=== PATIENT | female | born 1980 | race Caucasian/White ===

== ENCOUNTER → 2016-03-24 | Outpatient (CLI) | payer OTHER ==
[~2016-03-24] MED LIST: OXYC1SOL5 PO; OXYC1TAB63 PO; PREN29TA PO; PRENCAP10 PO
== END ==
LOC: HPND 08:53
PROVIDERS: ATTEND Obstetrics & Gynecology
DX: O09.522 Supervision of elderly multigravida, second trimester (principal); Z3A.23 23 weeks gestation of pregnancy
CPT/HCPCS: 76811; 76817

== ENCOUNTER → 2016-04-07 | Outpatient (CLI) | payer OTHER | LOC: HPND 12:43 | PROVIDERS: ATTEND Obstetrics & Gynecology | DX: O09.522 Supervision of elderly multigravida, second trimester (principal); O26.872 Cervical shortening, second trimester; O10.912 Unspecified pre-existing hypertension complicating pregnancy, second trimester | CPT/HCPCS: 76817; 76825; 76827; 93325 ==

== ENCOUNTER 2016-04-27 13:34 | Emergency (ER) | payer OTHER ==
[~2016-04-27 13:34] MED LIST changes: -OXYC1TAB63 PO; -PREN29TA PO
--- NOTE | 2016-04-27 14:05 | PD ---
HPI Chief Complaint Patient sent to [facility] per Dr. Jackson, R/o PTL Date Seen: Apr 27, 2016 Travel History International Travel<30 Days: No Contact w/Intl Traveler<30Days: No Known Affected Area: No History of Present Illness HPI at 28w 5d presents per Dr. Jackson. Patient seen in US today, noted to have a shorten cervix, 1.6cm with funneling on US today per TV scan, per verbal report from tech. US- cephalic, posterior placenta, ASHLYN 21.8cm. Patient with shorten cervix noted earlier this , then improved cervical length. Currently taking Progesterone. Patient without complaints. Denies ctxs/ abdominal pain/VB. Reports good FM. Denies urinary/bowel problems. Para: 3 : 10 History Past Medical History Medical History: Denies Significant Hx Past Surgical History Surgical History: No Previous Surgery Family History Family History: Negative Social History Alcohol Use: No Tobacco Use: No Substance Abuse: No Allergies-Medications (Allergen,Severity, Reaction): Coded Allergies: No Known Allergies (Verified , 07/20/14) Home Meds Active Scripts Oxycodone W/ Acetaminophen (Oxycodone/Acetaminophen 5-325 mg/5Ml)1 Tab Tab1 Tab PO Q4H PRN (PAIN SCALE 1 TO 4) #30 TAB Prov:Rachele Viera MD 07/21/14 Reported Medications Vit W/ Ferrous Fumara ( Multi +Dha)+ Cap1 Cap PO DAILY 12/19/13 Physical Exam Narrative GENERAL: Well-nourished, well-developed patient. SKIN: Warm and dry. HEAD: Normocephalic and atraumatic. EYES: No scleral icterus. No injection or drainage. ENT: No nasal drainage noted. Mucous membranes pink. Airway patent. NECK: Supple, trachea midline. No JVD. CARDIOVASCULAR: Regular rate and rhythm without murmurs, gallops, or rubs. RESPIRATORY: Breath sounds equal bilaterally. No accessory muscle use. BREASTS: Bilateral exam showed no masses , no retractions, no nipple discharge. ABDOMEN/GI: Abdomen soft, non-tender, bowel sounds present, no rebound, no guarding Gravid to [-] weeks size Fundal Height: [-] GENITOURINARY: External Genitalia: intact and normal in appearance BUS glands: [-] Cervix: [no cervical change noted after 2 hours] Dilatation: [0] Effacement: [50] Station: [3] Presentation: [-] Membranes: [intact or ruptured] Uterine Contractions: [none] FHT's: Category: [1] Baseline: [-] Reactive: [-] Variability: [moderate] Decels: [none] EXTREMITIES: No cyanosis or edema. BACK: Nontender without obvious deformity. No CVA tenderness. NEUROLOGICAL: Awake and alert. Motor and sensory grossly within normal limits. Five out of 5 muscle strength in all muscle groups. Normal speech. Data Data Vital Signs Reviewed: Yes (AFVSS BP 112/61) Labs UA- negative MDM Interpretation(s) at 28w 5d with shorten cervix, AMA, r/o PTL. Plan Per Dr. Jackson, patient to receive betamethosone course beginning today. Will d/ c home on bedrest and pelvic rest. Return to L&D for 2nd dose tomorrow. R/B/A reviewed with patient. All questions answered. Close f/u in office. labor precautions. Diagnosis Diagnosis: Primary Impression: 28 weeks gestation of Additional Impressions: Cervical shortening affecting in third trimester AMA (advanced maternal age) multigravida 35+ Disposition: 01 DISCHARGE HOME Condition: Good Britta Marte MD Apr 27, 2016 14:05
[2016-04-27] MEDS ORDERED: BETAMETHASONE SOD PHOS/ACETATE SUSP 30 MG/5 ML VIAL IM ONE (14:45)
[2016-04-27 14:48] LABS: BACTERIA, URINE RARE /hpf; BLOOD, URINE NEG (NEG); COMMENT (UR) CULT NOT INDICATED; CULTURE IF INDICATED CULT NOT INDICATED; GLUCOSE,URINE NEG (NEG); KETONE, URINE NEG (NEG); MUCUS URINE FEW /lpf (OCC); NITRITE,URINE NEG (NEG); SQUAMOUS EPITHELIAL CELL URINE 1 /hpf (0-5); URINE COLOR YELLOW (YELLW/STRAW)
[2016-08-18] MEDS ORDERED: PREN29TA PO (12:58)
== END 2016-04-27 16:45 | disposition home or self-care (01) ==
LOC: HOBED 13:34
DX: O26.873 Cervical shortening, third trimester (principal); O09.523 Supervision of elderly multigravida, third trimester; Z3A.28 28 weeks gestation of pregnancy
CPT/HCPCS: 81001; 96372; 99284; J0702

== ENCOUNTER → 2016-04-27 | Outpatient (CLI) | payer OTHER | LOC: HPND 12:26 | PROVIDERS: ATTEND Obstetrics & Gynecology | DX: O09.523 Supervision of elderly multigravida, third trimester (principal); O10.913 Unspecified pre-existing hypertension complicating pregnancy, third trimester; Z3A.28 28 weeks gestation of pregnancy | CPT/HCPCS: 76816; 76817 ==

== ENCOUNTER → 2016-04-28 | Outpatient (CLI) | payer OTHER ==
[~2016-04-28] MED LIST changes: +BETAMETHASONE SOD PHOS/ACETATE SUSP 30 MG/5 ML VIAL IM ONE; +OXYC1TAB63 PO; +PREN29TA PO
== END ==
LOC: HOBG 14:59
PROVIDERS: ATTEND Obstetrics & Gynecology
DX: O09.523 Supervision of elderly multigravida, third trimester (principal); O10.913 Unspecified pre-existing hypertension complicating pregnancy, third trimester
CPT/HCPCS: 96372; J0702

== ENCOUNTER 2016-05-18 20:12 | Emergency (ER) | payer OTHER ==
[~2016-05-18 20:12] MED LIST changes: -BETAMETHASONE SOD PHOS/ACETATE SUSP 30 MG/5 ML VIAL IM ONE; -OXYC1TAB63 PO; -PREN29TA PO
[2016-05-18 21:49] LABS: BACTERIA, URINE RARE /hpf; BLOOD, URINE NEG (NEG); COMMENT (UR) CULT NOT INDICATED; CULTURE IF INDICATED CULT NOT INDICATED; GLUCOSE,URINE TRACE mg/dL (NEG); KETONE, URINE TRACE mg/dL (NEG); MUCUS URINE FEW /lpf (OCC); NITRITE,URINE NEG (NEG); SQUAMOUS EPITHELIAL CELL URINE 1 /hpf (0-5); URINE COLOR YELLOW (YELLW/STRAW)
--- NOTE | 2016-05-18 21:57 | PD ---
HPI Chief Complaint Left lower abdominal pain today Date Seen: May 18, 2016 Travel History International Travel<30 Days: No Contact w/Intl Traveler<30Days: No Known Affected Area: No History of Present Illness HPI This patient is a 36-year-old white female G3 N P3 at [address] solorzano for care who presents complaining of left lower quadrant abdominal pain near the groin today. She had no pain prior to today. She denies bleeding or rupture the membranes baby is active heart rate tracing is reactive and she is not yunior Para: 3 : 10 History Obstetric History Obstetric History 3 vaginal deliveries, multiple losses early Social History Alcohol Use: No Tobacco Use: No Substance Abuse: No Allergies-Medications (Allergen,Severity, Reaction): Coded Allergies: No Known Allergies (Verified , 07/20/14) Home Meds Active Scripts Oxycodone W/ Acetaminophen (Oxycodone/Acetaminophen 5-325 mg/5Ml)1 Tab Tab1 Tab PO Q4H PRN (PAIN SCALE 1 TO 4) #30 TAB Prov:Rachele Viera MD 07/21/14 Reported Medications Vit W/ Ferrous Fumara ( Multi +Dha)+ Cap1 Cap PO DAILY 12/19/13 Review of Systems General / Constitutional: No: Fever, Weight Gain, Chills, Other Eyes: No: Diploplia, Blurred Vision, Visual changes, Pain, Photophobia HENT: No: Headaches, Vertigo, Lightheadedness Cardiovascular: No: Irregular Rhythm, Chest Pain or Discomfort, Palpitations, Tachycardia, Syncope, Varicosities, Edema, Cyanosis Respiratory: No: Cough, Short of Breath, Other Gastrointestinal: Abdominal Pain, No: Nausea, Vomiting, Diarrhea Genitourinary: No: Decreased Urinary Output, Oliguria Musculoskeletal: No: Limited ROM, Weakness, Cramping, Edema, Pain Skin: No Rash, No Itching, No Dryness, No Lumps, No Change in Pigmentation, No Change in Nails, No Alopecia, No Lesions Neurologic: No: Weakness, Dizziness, Syncope, Focal Abnormalities, Coordination Problem, Headache, Slurred Speech, Seizures Psychiatric: No: Depression, Suicidal Ideations, Homicidal Ideation Endocrine: No: Heat Intolerance, Cold Intolerance, Polydipsia, Polyuria, Other Physical Exam Narrative GENERAL: Well-nourished, well-developed patient. SKIN: Warm and dry. HEAD: Normocephalic and atraumatic. EYES: No scleral icterus. No injection or drainage. ENT: No nasal drainage noted. Mucous membranes pink. Airway patent. NECK: Supple, trachea midline. No JVD. CARDIOVASCULAR: Regular rate and rhythm without murmurs, gallops, or rubs. RESPIRATORY: Breath sounds equal bilaterally. No accessory muscle use. BREASTS: Bilateral exam showed no masses , no retractions, no nipple discharge. ABDOMEN/GI: Abdomen soft, non-tender, bowel sounds present, no rebound, no guarding Gravid to [-30] weeks size Fundal Height: [30-] GENITOURINARY: External Genitalia: intact and normal in appearance BUS glands: [-] Cervix: [Closed-] Dilatation: [Closed-] Effacement: [-] Thick Station: [-3] Presentation: [vtx-] Membranes: [intact ] Uterine Contractions: [none-] FHT's: Category: [1-] Baseline: [-133] Reactive: [yes-] Variability: [mod-] Decels: [-none] EXTREMITIES: No cyanosis or edema. BACK: Nontender without obvious deformity. No CVA tenderness. NEUROLOGICAL: Awake and alert. Motor and sensory grossly within normal limits. Five out of 5 muscle strength in all muscle groups. Normal speech. Data Data Orders Urinalysis - C+S If Indicated (05/18/16 21:19) Labs Laboratory Tests Test 05/18/16 20:20 Urine Color YELLOW Urine Turbidity CLEAR Urine pH 6.0 Urine Specific [place] 1.019 Urine Protein NEG Urine Glucose (UA) TRACE Urine Ketones TRACE Urine Occult Blood NEG Urine Nitrite NEG Urine Bilirubin NEG Urine Urobilinogen LESS THAN 2.0 Urine Leukocyte Esterase NEG Urine RBC LESS THAN 1 Urine WBC 1 Urine Squamous Epithelial 1 Cells Urine Bacteria RARE Urine Mucus FEW Microscopic Urinalysis Comment CULT NOT INDICATED MDM Interpretation(s) This patient is a 36-year-old white female G2 and P3 at 31 weeks presents planning of lower abdominal and groin pain on the left, no bleeding or rupture the membranes baby is active heart rate tracing is reactive and she is not yunior, her cervix is closed long and thick, urinalysis is negative Impression-probable soft tissue strain and pain from activity earlier in the day , she is not having contractions her urine is clear somal certainly this is a musculoskeletal issue. Plan Plan for this patient to use bedrest at home as much as possible the next 24 hours heating pad on this left groin areas okay or hot bath. She'll increase her fluid intake to hydrate and use Tylenol liberally for pain relief. She is to follow-up with Dr. Delcid her OB provider if symptoms persist Diagnosis Diagnosis: Primary Impression: Abdominal pain during in third trimester Disposition: 01 DISCHARGE HOME Condition: Stable Patient Instructions: General Instructions, Early Labor Signs (ED), Movement (ED) Departure Forms: Tests/Procedures Van Jeo II, MD May 18, 2016 21:57
[2016-08-18] MEDS ORDERED: PREN29TA PO (12:58)
== END 2016-05-18 21:57 | disposition home or self-care (01) ==
LOC: HOBED 20:12
DX: O26.893 Other specified pregnancy related conditions, third trimester (principal); R10.32 Left lower quadrant pain
CPT/HCPCS: 81001; 99284

== ENCOUNTER → 2016-05-25 | Outpatient (CLI) | payer OTHER ==
[~2016-05-25] MED LIST changes: +OXYC1TAB63 PO; +PREN29TA PO
== END ==
LOC: HPND 13:22
PROVIDERS: ATTEND Obstetrics & Gynecology
DX: O09.523 Supervision of elderly multigravida, third trimester (principal); O26.843 Uterine size-date discrepancy, third trimester
CPT/HCPCS: 76816

== ENCOUNTER 2016-07-02 11:52 | Emergency (ER) | payer OTHER ==
[~2016-07-02 11:52] MED LIST changes: -OXYC1TAB63 PO; -PREN29TA PO
--- NOTE | 2016-07-02 12:55 | PD ---
HPI Chief Complaint High blood pressure at home Date Seen: July 02, 2016 Travel History International Travel<30 Days: No Contact w/Intl Traveler<30Days: No Known Affected Area: No History of Present Illness HPI This patient is 36-year-old white female GTN P3 [address] solorzano for care who presents with some high blood pressure readings at home . She called the office and they told her to come up to OB ED have her pressure checked . The patient denies any symptomatology no headaches blurry vision and spots in front of her eyes, abdominal pain, and swelling,weakness, malaise. Her blood pressures here are within normal limits 120/70 ,103/70 Para: 3 : 10 History Obstetric History Obstetric History 3 vaginal deliveries 6 losses Social History Alcohol Use: No Tobacco Use: No Substance Abuse: No Allergies-Medications (Allergen,Severity, Reaction): Coded Allergies: No Known Allergies (Verified , 07/20/14) Home Meds Active Scripts Oxycodone W/ Acetaminophen (Oxycodone/Acetaminophen 5-325 mg/5Ml)1 Tab Tab1 Tab PO Q4H PRN (PAIN SCALE 1 TO 4) #30 TAB Prov:Rachele Viera MD 07/21/14 Reported Medications Vit W/ Ferrous Fumara ( Multi +Dha)+ Cap1 Cap PO DAILY 12/19/13 Review of Systems General / Constitutional: No: Fever, Weight Gain, Chills, Other Eyes: No: Diploplia, Blurred Vision, Visual changes, Pain, Photophobia HENT: No: Headaches, Vertigo, Lightheadedness Cardiovascular: No: Irregular Rhythm, Chest Pain or Discomfort, Palpitations, Tachycardia, Syncope, Varicosities, Edema, Cyanosis Respiratory: No: Cough, Short of Breath, Other Gastrointestinal: No: Nausea, Vomiting, Diarrhea Genitourinary: No: Decreased Urinary Output, Oliguria Musculoskeletal: No: Limited ROM, Weakness, Cramping, Edema, Pain Skin: No Rash, No Itching, No Dryness, No Lumps, No Change in Pigmentation, No Change in Nails, No Alopecia, No Lesions Neurologic: No: Weakness, Dizziness, Syncope, Focal Abnormalities, Coordination Problem, Headache, Slurred Speech, Seizures Psychiatric: No: Depression, Suicidal Ideations, Homicidal Ideation Endocrine: No: Heat Intolerance, Cold Intolerance, Polydipsia, Polyuria, Other Physical Exam Narrative GENERAL: Well-nourished, well-developed patient. SKIN: Warm and dry. HEAD: Normocephalic and atraumatic. EYES: No scleral icterus. No injection or drainage. ENT: No nasal drainage noted. Mucous membranes pink. Airway patent. NECK: Supple, trachea midline. No JVD. CARDIOVASCULAR: Regular rate and rhythm without murmurs, gallops, or rubs. RESPIRATORY: Breath sounds equal bilaterally. No accessory muscle use. BREASTS: Bilateral exam showed no masses , no retractions, no nipple discharge. ABDOMEN/GI: Abdomen soft, non-tender, bowel sounds present, no rebound, no guarding Gravid to [38-] weeks size Fundal Height: [-38] Membranes: [intact ] Uterine Contractions: [none-] FHT's: Category: [-1] Baseline: [-144] Reactive: [-yes] Variability: [mod-] Decels: [none-] EXTREMITIES: No cyanosis or edema. BACK: Nontender without obvious deformity. No CVA tenderness. NEUROLOGICAL: Awake and alert. Motor and sensory grossly within normal limits. Five out of 5 muscle strength in all muscle groups. Normal speech. MDM Interpretation(s) This patient is 36-year-old white female GTN P3 at [address] solorzano for care. She presents here can she is blood pressure checks at home number high.. On OB ED her blood pressures within normal limits 120/70 ,103/70 , she has no other symptoms at all no pain headache blurry vision spots in front of her eyes and abdominal pain Plan Plan for patient to be at home at bedrest if she sees some pressures that are higher and follow-up with Dr. solorzano in usual fashion or sooner if she develops other symptoms Diagnosis Diagnosis: Primary Impression: Elevated blood pressure complicating in third trimester, antepartum Disposition: 01 DISCHARGE HOME Condition: Stable Van Joe II, MD July 02, 2016 12:55
[2016-08-18] MEDS ORDERED: PREN29TA PO (12:58)
== END 2016-07-02 13:14 | disposition home or self-care (01) ==
LOC: HOBED 11:52
DX: O26.893 Other specified pregnancy related conditions, third trimester (principal); O16.3 Unspecified maternal hypertension, third trimester; Z3A.38 38 weeks gestation of pregnancy
CPT/HCPCS: 59025

== ENCOUNTER 2016-07-09 10:51 | Inpatient (IN) | payer OTHER ==
[2016-07-09] VITALS (27 sets, daily range): BP systolic 92–166; BP diastolic 68–95; PULSE 79–129; RESP 17–18; TEMP 98.1–98.5
[~2016-07-09] VITALS: Ht 165.1 cm; Wt 98.0 kg
[2016-07-09] MEDS ORDERED: LIDOCAINE HCL 1% 50 ML VIAL I-DERMAL PRN (12:30)
[2016-07-09] MEDS ORDERED: NS 500 ML BOLUS IV PRN (12:30)
[2016-07-09] MEDS ORDERED: OXYTOCIN 30 UNITS 500ML PREMIX IV ONE (12:30)
[2016-07-09] MEDS ORDERED: MINERAL OIL 10 ML VIAL TOPICAL PRN (12:30)
[2016-07-09] MEDS ORDERED: LACTATED RINGER'S 1000 ML BOLUS IV PRN (12:30)
[2016-07-09] MEDS ORDERED: PENICILLIN G POT 5,000,000 UNITS/NS 100 ML (Mini-Bag Plus) IV ONE ×2 (12:30)
[2016-07-09] MEDS ORDERED: LACTATED RINGER'S 1000 ML IV SCH (12:30)
[2016-07-09] MEDS ORDERED: OXYTOCIN 30 UNITS/NS 500ML PREMIX IV SCH (12:30)
[2016-07-09] MEDS ORDERED: NS 1000 ML IV PRN (12:30)
[2016-07-09] MEDS ORDERED: CITRIC ACID-SODIUM CITRATE LIQ 30 ML UDC PO SCH (12:30)
[2016-07-09] MEDS ORDERED: LIDOCAINE HCL 1% 50 ML VIAL INFIL PRN (12:30)
[2016-07-09 12:33] LABS: AUTOMATED NEUTROPHIL # 7.9 TH/MM3 (1.8-7.7); BASOPHIL % 0.3 % (0.0-2.0); EOSINOPHIL # 0.4 TH/MM3 (0-0.4); EOSINOPHIL % 3.7 % (0.0-4.0); HEMO FLAGS DIFF FINAL; LYMPH % 18.2 % (9.0-44.0); MEAN CELL VOLUME 89.4 FL (80.0-100.0); MEAN CORPUSCULAR HEMOGLOBIN 30.7 PG (27.0-34.0); MEAN CORPUSCULAR HGB CONC 34.4 % (32.0-36.0); MONO % 6.1 % (0.0-8.0); NEUT % 71.7 % (16.0-70.0); PLATELET COUNT 301 TH/MM3 (150-450); RED BLOOD COUNT 3.91 MIL/MM3 (4.00-5.30); RED CELL DISTRIBUTION WIDTH 14.8 % (11.6-17.2)
[2016-07-09 12:47] LABS: INDIRECT BILIRUBIN 0.5 MG/DL (0.0-0.8); TOTAL BILIRUBIN ADULT 0.6 MG/DL (0.2-1.0)
[2016-07-09 12:52] LABS: BACTERIA, URINE MOD /hpf; BLOOD, URINE TRACE (NEG); COMMENT (UR) CULTURE INDICATED; CULTURE IF INDICATED CULTURE INDICATED; GLUCOSE,URINE NEG (NEG); HYALINE CAST, URINE 3 /lpf (RARE); KETONE, URINE NEG (NEG); MUCUS URINE FEW /lpf (OCC); NITRITE,URINE NEG (NEG); PH, URINE 5.5 (5.0-8.5); SQUAMOUS EPITHELIAL CELL URINE 4 /hpf (0-5); URINE COLOR YELLOW (YELLW/STRAW)
[2016-07-09] MEDS ORDERED: fentaNYL 2MCG-BUPIV 0.125% INJ 100 ML ONE (13:27)
--- NOTE | 2016-07-09 13:28 | MH ---
cc: MARCELO SHER DATE OF ADMISSION: 07/09/2016 ADMISSION DIAGNOSIS 1. Term . 2. Advanced maternal age, 35. 3. Gestational hypertension. HISTORY OF PRESENT ILLNESS The patient is a 35-year-old single white female, para 2-1-6-3 with EDC of 07/15/2016 by early ultrasound. Her course has been benign. She had cervical shortening treated with progesterone and suppositories and did well. She has mild rise in blood pressure this week and is now admitted for induction. PAST MEDICAL HISTORY/PREVIOUS SURGERY None. MEDICATIONS Vitamins. ALLERGIES None. TRANSFUSIONS None. SOCIAL HISTORY She is single. 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 Alcohol, tobacco and drugs are none. PHYSICAL EXAMINATION GENERAL: A gravid white female in no distress. HEENT: Exam is normal. CHEST: Chest is clear. HEART: Regular rate. BREASTS: Symmetrical. ABDOMEN: Benign, gravid. EFW 3500 grams. Cervix is 3+ centimeters. GBS positive. ASSESSMENT/PLAN She is now admitted for induction, Pitocin and antibiotic therapy, epidural. Anticipate vaginal delivery. MD TOMMY Leon/RYNE /1:08 PM /1:17 PM MTDD
[2016-07-09] MEDS ORDERED: ONDANSETRON ODT 4 MG TAB PO PRN (14:45)
[2016-07-09] MEDS ORDERED: SODIUM CHLORIDE 0.9% FLUSH 10 ML FLUSH IV FLUSH PRN (14:45)
[2016-07-09] MEDS ORDERED: WITCH HAZEL 50%/GLYCERIN 12.5% 40 PAD JAR TOPICAL PRN (14:45)
[2016-07-09] MEDS ORDERED: ZOLPIDEM TARTRATE 5 MG TAB PO PRN (14:45)
[2016-07-09] MEDS ORDERED: ALUMINUM/MAGNESIUM/SIMETH 30 ML CUP PO PRN (14:45)
[2016-07-09] MEDS ORDERED: ACETAMINOPHEN 325 MG TAB PO PRN (14:45)
[2016-07-09] MEDS ORDERED: oxyCODONE/ACETAMINOPHEN 5 MG/325 MG TAB PO PRN (14:45)
[2016-07-09] MEDS ORDERED: BENZOCAINE 20% TOPICAL SPRAY 60 ML CAN TOPICAL PRN (14:45)
--- NOTE | 2016-07-09 14:57 | PD.OB.DELI ---
Anesthesia: None Episiotomy: None Vaginal Delivery: Normal, Precipitous Presentation: Occiput anterior Nuchal Cord: x1 Delayed cord clamping (45 sec): No : Male One Minute : 7 Five Minute : 9 Weight: 3625 gm Placenta: Spontaneous delivery, Intact Laceration: No lacerations Additional Information tight nuchal cord cut on perineum Van Joe II, MD July 09, 2016 14:57
[2016-07-09] MEDS: IBUPROFEN 600 MG TAB PO PRN ×2 (15:37→21:34)
[2016-07-09] MEDS ORDERED: DIPHTH/TETANUS/ACEL PERTUSSIS (BOOSTER) 0.5 ML VIAL/PFS IM ONE (16:00)
[2016-07-09] MEDS ORDERED: MEASLES, MUMPS, RUBELLA VACCINE 0.5 ML VIAL SQ ONE (16:00)
[2016-07-09] MEDS ORDERED: PENICILLIN G POT 2,500,000 UNITS/NS 100 ML IV SCH ×2 (17:00)
[2016-07-09] MEDS ORDERED: SODIUM CHLORIDE 0.9% FLUSH 10 ML FLUSH IV FLUSH SCH (21:00)
[2016-07-09] MEDS: DOCUSATE SODIUM 50 MG/SENNA 8.6 MG TAB PO PRN (21:34)
[2016-07-10] MEDS: IBUPROFEN 600 MG TAB PO PRN ×4 (04:51→22:53)
[2016-07-10 06:07] LABS: AUTOMATED NEUTROPHIL # 7.7 TH/MM3 (1.8-7.7); BASOPHIL % 0.2 % (0.0-2.0); EOSINOPHIL # 0.3 TH/MM3 (0-0.4); EOSINOPHIL % 2.6 % (0.0-4.0); HEMATOCRIT 32.4 % (35.0-46.0); HEMO FLAGS DIFF FINAL; LYMPH % 21.4 % (9.0-44.0); LYMPHOCYTE # 2.4 TH/MM3 (1.0-4.8); MEAN CELL VOLUME 90.1 FL (80.0-100.0); MEAN CORPUSCULAR HEMOGLOBIN 29.7 PG (27.0-34.0); NEUT % 69.8 % (16.0-70.0); PLATELET COUNT 251 TH/MM3 (150-450); RED CELL DISTRIBUTION WIDTH 14.9 % (11.6-17.2); WHITE BLOOD COUNT 11.1 TH/MM3 (4.0-11.0)
[2016-07-10 08:00] VITALS: BP 134/76; PULSE 98; RESP 18; TEMP 96.6
[2016-07-10 09:00] VITALS: BP 134/76; PULSE 98; RESP 18; TEMP 97.6
[2016-07-10] MEDS: oxyCODONE/ACETAMINOPHEN 5 MG/325 MG TAB PO PRN ×3 (10:34→22:53)
[2016-07-10] MEDS: DOCUSATE SODIUM 50 MG/SENNA 8.6 MG TAB PO PRN (16:33)
[2016-07-11 07:30] VITALS: BP 122/81; PULSE 79; RESP 20; TEMP 98.6
[2016-07-11] MEDS: DOCUSATE SODIUM 50 MG/SENNA 8.6 MG TAB PO PRN (09:18)
[2016-07-11] MEDS: oxyCODONE/ACETAMINOPHEN 5 MG/325 MG TAB PO PRN (09:19)
[2016-07-11] MEDS: IBUPROFEN 600 MG TAB PO PRN (09:19)
[2016-07-11] MEDS ORDERED: OXYC1TAB63 PO (10:17)
--- NOTE | 2016-07-11 10:18 | HHI.DCPOC ---
Discharge Care Plan Report Symptoms to Your Doctor -Temperate above 100.5 degrees -Redness, of incision or excessive or foul smelling drainage -Unusual pain or calf pain -Increased vaginal bleeding -Painful or difficulty urinating -Feelings of extreme sadness or anxiety after 2 weeks Goals to Promote Your Health * To prevent worsening of your condition and complications * To maintain your health at the optimal level Directions to Meet Your Goals Take your medications as prescribed Follow your dietary instruction Follow activity as directed Ensure plenty of rest for recovery Drink fluids for hydration Keep your appointments as scheduled Take your immunizations and boosters as scheduled If your symptoms worsen call your PCP, if no PCP go to Urgent Care Center or Emergency Room Smoking is Dangerous to Your Health. Avoid second hand smoke Call the 24-hour crisis hotline for domestic abuse at Ramesh Jackson MD July 11, 2016 10:18
--- NOTE | 2016-07-13 08:23 | MD ---
cc: MARCELO SHER ADMISSION DATE: 07/09/2016 DISCHARGE DATE: 07/11/2016 ADMISSION DIAGNOSES Term . Advanced terminal age. DISCHARGE DIAGNOSES Term . Advanced terminal age. Delivered. HISTORY OF PRESENT ILLNESS The patient is a 35-year-old single white female, para 2-1-6-3, with an EDC of 07/15/2016 by early ultrasound, had a benign course. She had cervical shortening treated with vaginal progesterone cream until 36 weeks. Ultrasounds and testing were normal. Blood type was positive and Strep culture was positive. HOSPITAL COURSE She is admitted for induction on 07/09/2016 due to mild rise in blood pressure. She received Pitocin induction, antibiotic prophylaxis and rapidly progressed to a spontaneous vaginal delivery over an intact perineum of a viable, vigorous male. she did well and was discharged home in excellent condition on 07/11/2016. She was advised NPV, light activity. She is to return to see me in six weeks. She is to call for abnormal pain, bleeding, temperature, signs of infection or depression. She was bottle feeding. She was carefully instructed in circumcision care. She was given a prescription for Percocet 5, one p.o. q.4 hours p.r.n. pain #30, as needed OTC Motrin. She would like to schedule outpatient tubal in approximately 6 weeks. MD TOMMY Leon/SSB /10:23 AM /8:09 AM
[2016-08-18] MEDS ORDERED: PREN29TA PO (12:58)
== END 2016-07-11 11:55 | disposition home or self-care (01) | DRG 775 ==
LOC: H2EB 10:51 → H1EA 16:53
PROVIDERS: ADMIT Obstetrics & Gynecology; ATTEND Obstetrics & Gynecology
PROC: 10E0XZZ Delivery of Products of Conception, External Approach (ICD-10-PCS; principal; 2016-07-09)
DX: O13.4 Gestational [pregnancy-induced] hypertension without significant proteinuria, complicating childbirth (principal); O26.879 Cervical shortening, unspecified trimester; O69.1XX0 Labor and delivery complicated by cord around neck, with compression, not applicable or unspecified; O09.523 Supervision of elderly multigravida, third trimester; Z3A.00 Weeks of gestation of pregnancy not specified; O99.824 Streptococcus B carrier state complicating childbirth; Z37.0 Single live birth
CPT/HCPCS: 59025; 76816; 76818; 76820; 80076; 81001; 85025; 87086; 90715; J2540; J2590

== ENCOUNTER → 2016-08-18 | Outpatient (CLI) | payer OTHER ==
[~2016-08-18] MED LIST changes: -OXYC1SOL5 PO; +OXYC1TAB63 PO; +PREN29TA PO
[2016-08-18 13:54] LABS: AUTOMATED NEUTROPHIL # 3.3 TH/MM3 (1.8-7.7); BASOPHIL % 0.4 % (0.0-2.0); EOSINOPHIL # 1.2 TH/MM3 (0-0.4); HEMATOCRIT 39.7 % (35.0-46.0); HEMO FLAGS DIFF FINAL; LYMPH % 28.7 % (9.0-44.0); MEAN CELL VOLUME 87.2 FL (80.0-100.0); MEAN CORPUSCULAR HEMOGLOBIN 29.2 PG (27.0-34.0); MEAN CORPUSCULAR HGB CONC 33.5 % (32.0-36.0); MONO % 8.2 % (0.0-8.0); NEUT % 45.7 % (16.0-70.0); PLATELET COUNT 291 TH/MM3 (150-450); RED BLOOD COUNT 4.55 MIL/MM3 (4.00-5.30); RED CELL DISTRIBUTION WIDTH 14.2 % (11.6-17.2); WHITE BLOOD COUNT 7.1 TH/MM3 (4.0-11.0)
[2016-08-18 14:16] LABS: BLOOD, URINE NEG (NEG); COMMENT (UR) CULT NOT INDICATED; CULTURE IF INDICATED CULT NOT INDICATED; GLUCOSE,URINE NEG (NEG); KETONE, URINE NEG (NEG); MUCUS URINE FEW /lpf (OCC); NITRITE,URINE NEG (NEG); SQUAMOUS EPITHELIAL CELL URINE 2 /hpf (0-5); URINE COLOR YELLOW (YELLW/STRAW)
[2016-08-18 14:16] LABS: BETA HCG QUANT LESS THAN 1 MIU/ML (0-5)
== END ==
LOC: CPRE 12:35
PROVIDERS: ATTEND Obstetrics & Gynecology
DX: Z01.812 Encounter for preprocedural laboratory examination (principal); Z30.2 Encounter for sterilization
CPT/HCPCS: 36415; 81001; 84702; 85025

== ENCOUNTER → 2016-08-20 | Day surgery (SDC) | payer OTHER ==
[~2016-08-20] VITALS: Ht 165.1 cm; Wt 89.9 kg
[~2016-08-20] MED LIST changes: +*morphine SULFATE 8 MG/ML PERIprocedure ONLY ONE; +ACETAMINOPHEN 1000 MG/100 ML VIAL IV ONE; +ACETAMINOPHEN 1000 MG/100 ML VIAL IV PRN; +CHLORHEXIDINE GLUCONATE 2 % 1 PACK (2 CLOTHS) TOPICAL PRN; +DEXAMETHASONE SOD PHOS 4 MG/ML VIAL ONE; +DO NOT ADM ANY ANTICOAGULANT DRUGS PRN; +FAMOTIDINE 20 MG/2 ML VIAL ONE; +INSULIN HUMAN REGULAR 1,000 UNITS/10 ML VIAL SQ PRN; +KETOROLAC TROMETHAMINE 60 MG/2 ML (IM) VIAL IM ONE; +LACTATED RINGER'S 1000 ML IV PRN; +LIDOCAINE 1%/EPINEPHrine 1:100,000 SOLN 20 ML VIAL ONE; +METOCLOPRAMIDE HCL 10 MG/2 ML VIAL IV PUSH PRN; +METOPROLOL TARTRATE 25 MG TAB PO PRN; +MIDAZOLAM HCL 2 MG/2 ML VIAL ONE; +ONDANSETRON HCL 4 MG/2 ML VIAL IV PUSH ONE; -OXYC1TAB63 PO; +POVIDONE IODINE 5% (ANTISEPSIS KIT) 4 APPLICATIONS EACH NARE PRN; -PRENCAP10 PO; +PROPOFOL 200 MG/20 ML AMP IV ONE; +SODIUM CHLORID 0.9% 500 ML IV PRN; +ceFAZolin 1,000 MG/NS 100 ML IV SCH; +fentaNYL CITRATE 250 MCG/5 ML AMP ONE; +oxyCODONE/ACETAMINOPHEN 5 MG/325 MG TAB PO PRN
[2016-08-20 05:48] VITALS: BP 138/79; PULSE 85; RESP 18; TEMP 98.8; O2SAT 98
--- NOTE | 2016-08-20 07:06 | MH ---
cc: MARCELO SHER MD DATE OF ADMISSION: 08/20/2016 08/20/16 DATE OF 1980 ADMISSION DIAGNOSIS Multiparity. HISTORY OF PRESENT ILLNESS The patient is a 36-year-old single white female para 3-1-6-4. Status post vaginal delivery on 07/09/2016. She is now admitted for elective sterilization. PAST MEDICAL HISTORY Previous surgery none. MEDICATIONS Vitamins. ALLERGIES None. TRANSFUSIONS None. SOCIAL HISTORY She is single. She is an RN [employer]. Alcohol, tobacco and drugs are none. FAMILY HISTORY Her family history is noncontributory. PHYSICAL EXAMINATION GENERAL: This is a well-nourished, well-developed white female. VITAL SIGNS: Stable. HEENT: Exam is normal. CHEST: Chest is clear. HEART: Regular rate. BREASTS: The breasts are symmetrical. ABDOMEN: The abdomen is benign. PELVIC: Exam is normal. Cervix normal. Uterus normal size, shape, anterior, no adnexal masses. ASSESSMENT As above. PLAN She is now admitted for outpatient laparoscopic partial salpingectomy for permanent sterilization. While in the office I explained the procedures, the risks, benefits and complications including but not limited to , infection, injury, bleeding and failure of tubal, is aware it is non-reversible, would like to proceed. MD TOMMY Leon/SUHA /8:53 PM /7:00 AM MTDNikki
[2016-08-20 10:25] VITALS: BP 120/72; PULSE 72; RESP 18; TEMP 97.8; O2SAT 95
--- NOTE | 2016-08-21 10:02 | MP ---
cc: MARCELO SHER DATE OF SURGERY: 08/20/2016 PREOPERATIVE DIAGNOSIS Multiparity, desires sterilization. POSTOPERATIVE DIAGNOSIS Multiparity, desires sterilization. PROCEDURE Laparoscopic bilateral partial salpingectomy. ANESTHESIA General endotracheal. SURGEON Marcelo Sher MD ANALYTICS LEADER EVETTE Cheng ESTIMATED BLOOD LOSS Less than 5 cc. FLUIDS About 600 cc crystalloid. OBJECTIVE FINDINGS Following the induction of adequate general endotracheal anesthesia, the patient was prepped and draped supine on the operating table in the dorsal lithotomy position in the usual sterile fashion with the bladder being drained via Valdovinos catheterization. The timeout was done and the consent was noted to state laparoscopic bilateral salpingo-oophorectomy. I had spoken to the patient in the pre-op with the plan for a bilateral salpingectomy only. I verified through her significant other Yfn via phone. His understanding is that she is having a tubal only. I verified it through my patient scheduler, Margaret Healy the fact the patient was posted for a bilateral salpingectomy and she had spoke to the OR via phone the day prior to confirm that, and that was the operation that would be performed. The abdomen was opened through a 0.5 cm infraumbilical incision. A 5 mm port was placed followed by laparoscope. Under direct vision a second 10 mm port was placed in the left lower quadrant and a 5 mm in the right. The pelvis was inspected. There was normal uterus, tubes, ovaries, normal cul-de-sacs and normal liver edge. No port site injuries. Using a Harmonic scalpel the left fallopian tube was taken from the fimbria all the way to the isthmic region and extracted through the port; the same on the right. Careful inspection revealed no bleeding with low-pressure test. The large port was then removed and the fascia closed with 2-0 Vicryl and a Pete-Reena device, the skin with 3-0 Vicryl subcuticular. The ports were inspected. There was no entrapment or bleeding. Gas was allowed to escape. The small ports were removed and each port site injected with 3 cc Marcaine 0.5% with epinephrine. When all ports were closed the patient was awakened and taken to the recovery room in good condition. MD TOMMY Leon/MATEO /7:52 AM /9:51 AM
== END | disposition home or self-care (01) ==
LOC: HSDC 05:03
PROVIDERS: ATTEND Obstetrics & Gynecology
DX: Z30.2 Encounter for sterilization (principal)
CPT/HCPCS: 00840; 58661; 88302; J0131; J0690; J1100; J1885; J2250; J2270; J2405; J2765; J3010

== ENCOUNTER 2016-10-12 15:06 | Emergency (ER) | payer OTHER ==
[~2016-10-12] VITALS: Ht 165.1 cm; Wt 89.9 kg
[~2016-10-12 15:06] MED LIST changes: -*morphine SULFATE 8 MG/ML PERIprocedure ONLY ONE; -ACETAMINOPHEN 1000 MG/100 ML VIAL IV ONE; -ACETAMINOPHEN 1000 MG/100 ML VIAL IV PRN; -CHLORHEXIDINE GLUCONATE 2 % 1 PACK (2 CLOTHS) TOPICAL PRN; -DEXAMETHASONE SOD PHOS 4 MG/ML VIAL ONE; -DO NOT ADM ANY ANTICOAGULANT DRUGS PRN; -FAMOTIDINE 20 MG/2 ML VIAL ONE; -INSULIN HUMAN REGULAR 1,000 UNITS/10 ML VIAL SQ PRN; -KETOROLAC TROMETHAMINE 60 MG/2 ML (IM) VIAL IM ONE; -LACTATED RINGER'S 1000 ML IV PRN; -LIDOCAINE 1%/EPINEPHrine 1:100,000 SOLN 20 ML VIAL ONE; -METOCLOPRAMIDE HCL 10 MG/2 ML VIAL IV PUSH PRN; -METOPROLOL TARTRATE 25 MG TAB PO PRN; -MIDAZOLAM HCL 2 MG/2 ML VIAL ONE; -ONDANSETRON HCL 4 MG/2 ML VIAL IV PUSH ONE; -POVIDONE IODINE 5% (ANTISEPSIS KIT) 4 APPLICATIONS EACH NARE PRN; -PROPOFOL 200 MG/20 ML AMP IV ONE; -SODIUM CHLORID 0.9% 500 ML IV PRN; -ceFAZolin 1,000 MG/NS 100 ML IV SCH; -fentaNYL CITRATE 250 MCG/5 ML AMP ONE; -oxyCODONE/ACETAMINOPHEN 5 MG/325 MG TAB PO PRN
[2016-10-12 15:09] VITALS: BP 152/77; PULSE 107; RESP 14; TEMP 99.6; O2SAT 98
[2016-10-12] MEDS ORDERED: CLIN1CAP6 PO (15:52)
--- NOTE | 2016-10-12 15:53 | PD ---
HPI Chief Complaint: Musculoskeletal Complaint Time Seen by Provider: 15:35 Travel History International Travel<30 days: No Contact w/Intl Traveler<30days: No Traveled to known affect area: No History of Present Illness HPI 36-year-old female with chief complaint of pain in her right upper extremity. Patient reports yesterday while doing yard work she developed pain in the region of the proximal humerus. She cannot recall a specific injury or insect bite. She reports when she awoke this morning the pain had increased and throughout the afternoon she noticed an area of redness and swelling on the skin. She denies fever or chills. She reports the pain is constant, nonradiating, no aggravating or alleviating factors, severity 06/08. 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) Psychiatric: Yes (DEPRESSION AND ANXIETY) Reproductive: Yes Respiratory: No Immunizations Current: Yes Thyroid Disease: No ?: Not : 2 Para: 2 Miscarriage: 2 Past Surgical History AICD: No Gynecologic Surgery: Yes Joint Replacement: No Pacemaker: No Social History Alcohol Use: No Tobacco Use: No Substance Use: No Allergies-Medications (Allergen,Severity, Reaction): Coded Allergies: No Known Allergies (Verified , 10/12/16) Reported Meds & Prescriptions Reported Meds & Active Scripts Active Reported Plus Iron 29-1 mg ( Vit-Iron Carbonyl) 1 Tab Tab 1 Tab PO DAILY Review of Systems Except as stated in HPI: all other systems reviewed are Neg General / Constitutional: No: Fever Eyes: No: Visual changes HENT: No: Headaches Cardiovascular: No: Chest Pain or Discomfort Respiratory: No: Shortness of Breath Gastrointestinal: No: Abdominal Pain Genitourinary: No: Dysuria Musculoskeletal: No: Pain Physical Exam Narrative GENERAL: Well-nourished, well-developed patient. SKIN: Focused skin assessment warm/dry. 4 x 4 area of warmth, induration and erythema without fluctuance in the location of the proximal humerus lateral aspect. HEAD: Normocephalic. EYES: No scleral icterus. No injection or drainage. NECK: Supple, trachea midline. No JVD or lymphadenopathy. CARDIOVASCULAR: Regular rate and rhythm without murmurs, gallops, or rubs. RESPIRATORY: Breath sounds equal bilaterally. No accessory muscle use. MUSCULOSKELETAL: No cyanosis, or edema. 4 x 4 area of warmth, induration and erythema without fluctuance in the location of the proximal humerus lateral aspect. Data Data Last Documented VS Vital Signs Date Time Temp Pulse Resp B/P Pulse Ox O2 Delivery O2 Flow Rate FiO2 10/12/16 15:09 99.6 107 14 152/77 98 MDM Medical Decision Making Medical Screen Exam Complete: Yes Emergency Medical Condition: Yes Differential Diagnosis Abscess, cellulitis, inflamed insect bite Narrative Course 36-year-old female with chief complaint of right upper extremity pain. On exam patient has what looks consistent to an early abscess or inflamed insect bite. Patient will be treated with antibiotics. Advised to take OTC Benadryl. OTC NSAIDs as needed for pain. Follow-up the primary care doctor. Return precautions discussed. Patient verbalizes understanding and agrees to plan Diagnosis Primary Impression: Abscess Additional Impression: Cellulitis Qualified Code: L03.113 - Cellulitis of right upper extremity Referrals: Primary Care Physician Additional Instructions: Take the antibiotics as prescribed. Take [id number] Benadryl 25 mg by mouth every 6 hours as needed for itching. Follow-up with her primary doctor. Return to the emergency department if he developed new or worsening symptoms. Scripts Clindamycin 300 Mg Yux454 Mg PO Q6H #40 CAP Prov:Komal Johnson 10/12/16 Disposition: 01 DISCHARGE HOME Condition: Stable Komal Johnson Oct 12, 2016 15:53
[2016-10-12] MEDS ORDERED: KETOROLAC TROMETHAMINE 60 MG/2 ML (IM) VIAL IM ONE (16:00)
== END 2016-10-12 16:10 | disposition home or self-care (01) ==
LOC: PHEFT 15:06
DX: L02.413 Cutaneous abscess of right upper limb (principal); L03.113 Cellulitis of right upper limb
CPT/HCPCS: 99282; J1885